=== PATIENT | male | born 1955 | race Caucasian/White ===

== ENCOUNTER 2017-07-18 10:47 | Outpatient (CLI) | payer OTHER ==
--- NOTE | 2017-07-18 12:45 | RAD ---
TWO VIEWS RIGHT ANKLE: HISTORY: Right ankle pain. FINDINGS: AP and lateral views of the right ankle are obtained. Two views right ankle demonstrate some vascular calcifications seen in the posterior tibial artery. A small calcaneal bone spur is seen. No evidence of acute right ankle fracture is seen. IMPRESSION: No evidence of right ankle fractures or bony lesions. POS: ANKIT
== END 2017-07-18 10:48 | disposition home or self-care (01) ==
LOC: RAD 10:47
PROVIDERS: ATTEND Orthopaedic Surgery
DX: M25.571 Pain in right ankle and joints of right foot (principal)

== ENCOUNTER 2018-09-24 15:01 | Outpatient (CLI) | payer OTHER ==
--- NOTE | 2018-09-24 15:28 | RAD ---
RIGHT ANKLE 2 VIEWS: HISTORY: Disability examination. COMPARISON: 07/18/2017. FINDINGS/IMPRESSION: Mild degenerative changes. No fracture or dislocation or other acute process. Stable from prior tremayne dy. POS: [facility]
--- NOTE | 2018-09-24 15:29 | RAD ---
LUMBAR SPINE 2 VIEWS: HISTORY: Disability examination. FINDINGS: There is some generalized disk-osteophytosis and facet arthrosis. No confluent pneumonia, overt benito a, or pleural effusion. IMPRESSION: No acute process. Changes of spondylosis. POS: [facility]
== END 2018-09-24 15:02 | disposition home or self-care (01) ==
LOC: BICRAD 15:01
PROVIDERS: ATTEND Internal Medicine
DX: Z02.71 Encounter for disability determination (principal); M47.816 Spondylosis without myelopathy or radiculopathy, lumbar region; M19.071 Primary osteoarthritis, right ankle and foot
CPT/HCPCS: 72100

== ENCOUNTER 2018-10-26 10:03 | Outpatient (CLI) | payer OTHER ==
--- NOTE | 2018-10-26 10:36 | RAD ---
RIGHT ANKLE TWO VIEWS: HISTORY: Arthritis and ankle pain. COMPARISON: 09/24/2018 FINDINGS: Two views of the right ankle show no evidence of acute fracture or dislocation. No degenerative feliz ges are seen. Vascular calcifications are present. IMPRESSION: Unremarkable examination. POS: [facility]
== END 2018-10-26 10:04 | disposition home or self-care (01) ==
LOC: BICRAD 10:03
PROVIDERS: ATTEND Orthopaedic Surgery
DX: M19.071 Primary osteoarthritis, right ankle and foot (principal)